=== PATIENT | female | born 1950 | race Caucasian/White ===

== ENCOUNTER 2017-09-25 00:21 | Emergency (ER) | payer OTHER ==
[~2017-09-25] VITALS: Ht 162.6 cm; Wt 68.0 kg
--- NOTE | ~2017-09-25 | EKG ---
[place] [address] [facility] [place] [address] ELECTROCARDIOGRAM REPORT Name: BRAD DASILVARA Shelby [facility] [id number] Admission: 09/25/17 Attend Phys: Discharge: 09/25/17 Date of : 48 Report #: [id number] THIS REPORT FOR: //name// [facility] ED Test Date: 2017-09-25 Test Time: 01:40:57 Pat Name: SAW DASILVA Department: Room: Gender: F Filer And Sander: CHAD : 1950 Requested By: Chris Manning Order Number: [id number] MD: Jr Fabian Measurements Intervals [place] Rate: 70 P: -6 GA: 148 QRS: -23 QRSD: 84 T: 32 QT: 452 QTc: 488 Interpretive Statements Sinus rhythm Borderline left axis deviation Compared to ECG 01/18/2005 18:12:04 No significant changes Electronically Signed On 09-25-2017 8:11:06 CDT by Jr Fabian [email or web address] <ELECTRONICALLY SIGNED> By: Jr Fabian MD 09/25/17 0811 014 0140 Jr Fabian MD /MELISSA
[2017-09-25] MEDS ORDERED: SYNTHROID50 MCG PO (00:51)
[2017-09-25] MEDS ORDERED: NOVOLOG100 UNIT/1 SUBQ (00:51)
[2017-09-25 01:16] LABS: URINE BILIRUBIN NEGATIVE (Negative); URINE BLOOD NEGATIVE (Negative); URINE CLARITY CLEAR; URINE COLOR YELLOW; URINE GLUCOSE-RANDOM* NEGATIVE (Negative); URINE KETONES NEGATIVE (Negative); URINE LEUKOCYTES-REFLEX NEGATIVE (Negative); URINE NITRITE-REFLEX NEGATIVE (Negative); URINE PROTEIN (DIPSTICK) NEGATIVE (Negative); URINE SPECIFIC GRAVITY <= 1.005 (1.005-1.035); URINE UROBILINOGEN 0.2 E.U./dl (0.2-1.0)
[2017-09-25 01:57] LABS: ABSOLUTE NEUTROPHILS 3.7 thou/uL (1.4-8.2); BASOPHILS 3.2 % (0.0-2.0); EOSINOPHILS 2.1 % (0.0-3.0); HEMOGLOBIN 14.3 gm/dL (12.0-15.0); LYMPHOCYTES 27.2 % (24.0-44.0); MCH 32.4 pg (26.0-34.0); MCHC 34.1 g/dL (28.0-37.0); MCV 95.1 fL (80.0-100.0); MONOCYTES 6.9 % (1.0-8.0); PLATELET COUNT 241 thou/uL (150-400); POLYS 60.6 % (36.0-66.0); RBC 4.42 mil/uL (4.20-5.00); RDW 13.5 % (10.5-14.5); WBC 6.1 thou/uL (4.0-11.0)
[2017-09-25 02:08] LABS: ANION GAP 9 mmol/L (7-16); BUN 16 mg/dL (7-18); CALCIUM 9.7 mg/dL (8.5-10.1); CHLORIDE 107 mmol/L (98-107); CO2 28 mmol/L (21-32); CREATININE 0.9 mg/dL (0.6-1.0); GLUCOSE 133 mg/dL (74-106); POTASSIUM 3.5 mmol/L (3.5-5.1); SODIUM 144 mmol/L (136-145)
[2017-09-25 02:12] LABS: ALBUMIN 3.9 g/dL (3.4-5.0); MAGNESIUM 2.1 mg/dL (1.8-2.4); SGOT 23 U/L (15-37); SGPT 21 U/L (30-65); TOTAL BILIRUBIN 0.5 mg/dL (<0.1-1.0); TOTAL PROTEIN 7.4 g/dL (6.4-8.2); TROPONIN-I < 0.04 ng/mL (<0.06)
[2017-09-25] MEDS ORDERED: CLONIDINE0.1 PO (02:54)
[2017-09-25 03:13] VITALS: BP 147/82
== END 2017-09-25 03:16 | disposition home or self-care (01) ==
LOC: ER 00:21
PROVIDERS: Emergency Medicine
DX: I10 Essential (primary) hypertension (principal); F41.9 Anxiety disorder, unspecified; E03.9 Hypothyroidism, unspecified; E10.9 Type 1 diabetes mellitus without complications